=== PATIENT | female | born 1995 | race Hispanic/Latino ===

== ENCOUNTER 2019-06-08 11:21 | Emergency (ER) | payer SELFPAY ==
--- OUTSIDE RECORDS SUMMARY | 2019-06-08 11:23 | XMS REPORT ---
:1995 [facility] Address [address] [place] [address] Care Team Providers Name Role Phone DR SHANTI ZUELTA Unavailable Unavailable Problems This patient has no known problems. Allergies, Adverse Reactions, Alerts This patient has no known allergies or adverse reactions. Medications This patient has no known medications. Results Test Description Test Time Test Comments Text Results Atomic Results Result Comments URINE CULTURE 2016-11-14 07:16:00 Test Item Value Reference Range Comments Culture Observations (test code=COB1) NO GROWTH (<1,000 CFU/ML) HIV *WW*2016-11-11 09:23:00 Test Item Value Reference Range Comments HIV-1,2 and p24 (test code=CHIV) NON-REACTIVE NON-REACTIVE SYPHILIS SCREENING WW2016-11-11 09:13:00 Test Item Value Reference Range Comments T PALLIDUM AB (test NON-REACTIVE NON-REACTIVE code=SYPHINT) SYPHC (test code=SYPHC) RPR test has been updated to Treponemal Immunoassay. Interpretation of results is similar HEPATITIS B SURFACE ANTIGEN *WW*2016-11-11 08:52:00 Test Item Value Reference Range Comments HBSAG (test code=HBSAG) NON-REACTIVE NON-REACTIVE CBC (INCLUDES AUTOMATED DIFFERENTIAL)*[id number] 06:24:00 Test Item Value Reference Range Comments WBC (test code=WBC) 11.4 10\S\3/uL 4.5-11.0 RBC (test code=RBC) 3.63 10\S\6/uL 4.30-5.70 HGB (test code=HBG) 10.3 g/dL 12.0-15.5 HCT (test code=HCT) 32.3 % 35.0-44.0 MCV (test code=MCV) 89.0 fL 81.0-99.0 MCH (test code=MCH) 28.4 pg 27.0-31.0 MCHC (test code=MCHC) 31.9 g/dL 32.0-36.0 RDW (test code=RDW) 17.5 % 11.5-14.5 PLT (test code=PLT) 270 10\S\3/uL 130-400 MPV (test code=MPV) 10.1 fL 9.4-12.4 NEUTROP # (test code=NE#) 9.6 10\S\3/uL 1.6-8.0 LYMPH # (test code=LY#) 1.3 10\S\3/uL 1.1-3.5 MONOCYTE # (test code=MO#) 0.4 10\S\3/uL 0.0-1.1 EOSINOPH # (test code=EO#) 0.0 10\S\3/uL 0.0-0.7 BASOPHIL # (test code=BA#) 0.0 10\S\3/uL 0.0-0.3 IG # (test code=IG#) 0.09 10\S\3/uL 0.00-0.06 NRBC # (test code=NRBC#) 0.00 10\S\3/uL 0.00-0.01 NEUTROPH % (test code=NE%) 83.8 % 35.0-73.0 LYMPH % (test code=LY%) 11.4 % 20.0-55.0 MONO % (test code=MO%) 3.9 % 2.5-10.0 EOSINOPH % (test code=EO%) 0.0 % 0.0-5.0 BASOPHIL % (test code=BA%) 0.1 % 0.0-2.0 IG % (test code=IG%) 0.8 % 0.0-0.8 NRBC% (test code=NRBC%) 0.0 % 0.0-0.2 MANDIFF (test code=WMDIFF) NO NO RBC MORPH (test code=WRBCMOR) NORMAL URINALYSIS *WW*2016-11-11 04:46:00 Test Item Value Reference Range Comments COLOR (test code=COLU) YELLOW YELLOW CLARITY (test code=CLA) CLEAR CLEAR GLUCOSE UR (test code=UA GLUCOSE) NEGATIVE NEGATIVE BILI UR (test code=BILE) NEGATIVE NEGATIVE KETONES UR (test code=JERAMIE) 2+ NEGATIVE SP GRAVITY (test code=SPGR) 1.020 1.005-1.030 PH UR (test code=PH) 6.0 4.5-8.0 PROTEIN UR (test code=PU) NEGATIVE NEGATIVE UROBIL UR (test code=UROQ) 0.2 EU/dL 0.2-1.0 NITRITE UR (test code=NITRITE) NEGATIVE NEGATIVE BLOOD UR (test code=UA BLOOD) NEGATIVE NEGATIVE LEUK ES UR (test code=LEUK) NEGATIVE NEGATIVE AUAM (test code=WAUAM) NO NO U/S >14 WEEKS2016-11-11 02:47:43OB Ultrasound Complete HISTORY : PainCOMPARISON: NoneTECHNIQUE: Real-time sonography was performed transabdominally with the 4 MHztransducer.FINDINGS:There is a single living intrauterine fetus in vertex presentation.Placenta is right lateral, Grade 3. There is no evidence of placentalabruption nor placenta previa. Cervix is closed, measuring 3.7 cm length. Amniotic fluid volume is within normal limits with ANURAG of 9.0cm.ANATOMIC SURVEY: Limited anatomical survey is unremarkable. heart rate: 152 BPM Average sonographic age of the fetus is 36 weeks 3 days with NICK of 12/06/2016based on the following:Biparietal diameter : 9.10cmHead circumference: 33.4cmAbdominal circumference: 32.6cmFemur length: 7.00cmFetal ratios are normal. Estimated weight 2973 gFetal weight percentile: 65% based onpatient's ultrasound age of 36 weeks 3days.IMPRESSION: 1. Single living intrauterine fetus at 36 weeks 3 days sonographic age.2. No anomalies identified.3. No evidence for placenta previa nor abruption.U/S APPENDIX2016-11-11 02:42:56Right lower quadrant ultrasound history: PainComparison: NoneLocation [id number]: Grayscale imagesof the right lower quadrant are obtained.Findings:No enlarged appendix is identified. No fluid collection in the right lowerquadrant is identified. Normal peristalsing bowel is noted.Impression:No acute findings.U/S KIDNEY (RENAL)2016-11-11 02:40: 12RENAL ULTRASOUNDLocation R 16HISTORY: Renal failureCOMPARISON: None available.COMMENT: Real-time sonographic images of both kidneys reveals normal sizekidneys bilaterally with right kidney measuring 10.2 x 5.1 x 5.7 cm and theleft kidney measuring 10.9 x 5.8 x 5.9 cm. No evidence of hydronephrosis orrenal calculi identified.IMPRESSION: Normal bilateral renal ultrasound with no obstruction.
[2019-06-08 12:22] LABS: Urine Blood TRACE (NEG); Urine Glucose NEGATIVE (NEG); Urine Protein NEGATIVE (NEG); Urine Specific Gravity >1.030 (1.005-1.030); Urine pH 5.5 (5.0-7.0)
--- NOTE | 2019-06-08 12:37 | EDPHYS ---
Physician Documentation [facility] Name: Giovanna Bryant Age: 23 yrs Sex: Female : 1995 Arrival Date: 06/08/2019 Time: 11:24 Bed 18 Private MD: ED Physician Kenneth Eric HPI: 06/07 12:34 This 23 yrs old Female presents to ER via Ambulatory with complaints of ma2 Vaginal Pain. 12:34 The patient presents with a possible exposure to a sexually transmitted disease. Onset: ma2 The symptoms/episode began/occurred suddenly, 1 day(s) ago. Associated signs and symptoms: Pertinent negatives: dyspareunia, hematuria, vaginal bleeding. Severity of symptoms: At their worst the symptoms were moderate, in the emergency department the symptoms are unchanged. The patient has not experienced similar symptoms in the past. 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 - Social history:: Smoking status: Patient denies any tobacco usage or history of. Patient/guardian denies using alcohol, street drugs, The patient lives with family, with spouse. - Family history:: not pertinent. ROS: 12:34 Positive for urinary symptoms. ma2 12:34 Constitutional: Negative for fever, chills, and weight loss, Eyes: Negative for injury, pain, redness, and discharge, ENT: Negative for injury, pain, and discharge. 12:34 All other systems are negative. Exam: 12:34 Constitutional: This is a well developed, well nourished patient who is awake, alert, ma2 and in no acute distress. Chest/axilla: Normal chest wall appearance and motion. Nontender with no deformity. No lesions are appreciated. Cardiovascular: Regular rate and rhythm with a normal S1 and S2. No gallops, murmurs, or rubs. Normal PMI, no JVD. No pulse deficits. Respiratory: Lungs have equal breath sounds bilaterally, clear to auscultation and percussion. No rales, rhonchi or wheezes noted. No increased work of breathing, no retractions or nasal flaring. Abdomen/GI: Soft, non-tender, with normal bowel sounds. No distension or tympany. No guarding or rebound. No evidence of tenderness throughout. Back: No spinal tenderness. No costovertebral tenderness. Full range of motion. MS/ Extremity: Pulses equal, no cyanosis. Neurovascular intact. Full, normal range of motion. Neuro: Awake and alert, GCS 15, oriented to person, place, time, and situation. Cranial nerves II-XII grossly intact. Motor strength 5/5 in all extremities. Sensory grossly intact. Cerebellar exam normal. Normal gait. 12:34 : painful blisters in vaginal area. Vital Signs: 11:36 BP 118 / 79; Pulse 73; Resp 15 S; Temp 97(TE); Pulse Ox 100% on R/A; Weight 56.7 kg ca1 (R); Height 5 ft. (152.40 cm) (R); Pain 6/10; 11:36 Body Mass Index 24.41 (56.70 kg, 152.40 cm) ca1 MDM: 11:40 Patient medically screened. ma2 12:34 Differential diagnosis: urinary tract infection, vaginosis. Differential diagnosis: ma2 cervicitis, dysfunctional uterine bleeding. Data reviewed: vital signs, nurses notes. Counseling: I had a detailed discussion with the patient and/or guardian regarding: the historical points, exam findings, and any diagnostic results supporting the discharge/admit diagnosis, the presence of at least one elevated blood pressure reading (>120/80) during this emergency department visit, the need for outpatient follow up. Response to treatment: the patient's symptoms have markedly improved after treatment. 06/07 12:04 Order name: Urine Dipstick--Ancillary (enter results) bd 06/07 12:04 Order name: Urine --Ancillary (enter results) bd 06/07 11:40 Order name: Urine Dipstick-Ancillary (obtain specimen); Complete Time: 12:14 ma2 Administered Medications: No medications were administered Disposition: 06/08/19 12:36 Discharged to Home. 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 - Condition is Stable. - Discharge Instructions: Urinary Tract Infection, Adult. - Prescriptions for Benadryl Itch Cooling - apply 1 application by TOPICAL route 3-4 times daily for 8-10 days; 2 tube. lidocaine- aloe vera - Apply to affected area 1 application by TOPICAL route 3-4 times daily for 10 days; 2 tube. Cipro 500 mg Oral Tablet - take 1 tablet by ORAL route every 12 hours for 7 days; 14 tablet. Acyclovir 400 mg Oral Tablet - take 1 tablet by ORAL route every 6 hours for 5 days; 28 tablet. - Medication Reconciliation Form, Thank You Letter, Antibiotic Education, Prescription Opioid Use form. - Follow up: Private Physician; When: Tomorrow; Reason: Continuance of care. Signatures: Dispatcher [employer] EDMissy Richardson RN RN aa5 Kenneth Eric MD MD ma2 Bette Peñaloza RN RN ca1 Corrections: (The following items were deleted from the chart) 13:19 12:36 06/08/2019 12:36 Discharged to Home. Impression: Herpesviral [herpes simplex] aa5 infections; Cystitis, unspecified without hematuria. Condition is Stable. Forms are Medication Reconciliation Form, Thank You Letter, Antibiotic Education, Prescription Opioid Use. Follow up: Private Physician; When: Tomorrow; Reason: Continuance of care. ma2
--- NOTE | 2019-06-08 12:37 | ER ---
Nurse's Notes [facility] Name: Giovanna Bryant Age: 23 yrs Sex: Female : 1995 Arrival Date: 06/08/2019 Time: 11:24 Bed 18 Private MD: Diagnosis: Herpesviral [herpes simplex] infections;Cystitis, unspecified without hematuria Presentation: 06/07 11:36 Chief complaint: Patient states: "I got a lot of pain down there and sores for about ca1 3-4 days ago". Denies fever. Coronavirus screen: Patient denies fever greater than 100.4F, cough, shortness of breath, or difficulty breathing. Proceed with normal triage process. Ebola Screen: Patient negative for fever greater than or equal to 101.5 degrees Fahrenheit, and additional compatible Ebola Virus Disease symptoms Patient denies exposure to infectious person. Patient denies travel to an Ebola-affected area in the 21 days before illness onset. No symptoms or risks identified at this time. Initial Sepsis Screen: Does the patient meet any 2 criteria? No. Patient's initial sepsis screen is negative. Does the patient have a suspected source of infection? No. Patient's initial sepsis screen is negative. Risk Assessment: Do you want to hurt yourself or someone else? Patient reports no desire to harm self or others. Onset of symptoms was June 08, 2019. 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 - Social history:: Smoking status: Patient denies any tobacco usage or history of. Patient/guardian denies using alcohol, street drugs, The patient lives with family, with spouse. - Family history:: not pertinent. Screenin:40 Abuse screen: Denies threats or abuse. Nutritional screening: No deficits noted. aa5 Tuberculosis screening: No symptoms or risk factors identified. Fall Risk None identified. Assessment: 11:40 General: Appears comfortable, Behavior is calm, cooperative. Pain: Complains of pain in aa5 groin Pain does not radiate. Pain currently is 6 out of 10 on a pain scale. Quality of pain is described as burning, tender, stinging, Pain began 2-3 days ago. Is continuous. Neuro: Level of Consciousness is awake, alert, obeys commands, Oriented to person, place, time, situation. Cardiovascular: Patient's skin is warm and dry. Respiratory: Airway is patent Respiratory effort is even, unlabored, Respiratory pattern is regular, symmetrical. GI: No signs and/or symptoms were reported involving the gastrointestinal system. : Reports burning with urination, Denies vaginal discharge. EENT: No signs and/or symptoms were reported regarding the EENT system. Derm: Skin is pink, warm \\T\\ dry. Rash noted that is red, raised, on groin. Musculoskeletal: Range of motion: intact in all extremities. 12:20 Reassessment: Patient is alert, oriented x 3, equal unlabored respirations, skin aa5 warm/dry/pink. 13:05 Reassessment: Patient is alert, oriented x 3, equal unlabored respirations, skin aa5 warm/dry/pink. Vital Signs: 11:36 BP 118 / 79; Pulse 73; Resp 15 S; Temp 97(TE); Pulse Ox 100% on R/A; Weight 56.7 kg ca1 (R); Height 5 ft. (152.40 cm) (R); Pain 6/10; 11:36 Body Mass Index 24.41 (56.70 kg, 152.40 cm) ca1 ED Course: 11:24 Patient arrived in ED. mr 11:38 Triage completed. ca1 11:38 Arm band placed on right wrist. ca1 11:39 Kenneth Eric MD is Attending Physician. ma2 11:40 Patient has correct armband on for positive identification. Placed in gown. Bed in low aa5 position. Call light in reach. Side rails up X 1. 11:42 Missy Matthews, ABIOLA is Primary Nurse. aa5 11:58 Urine collected: clean catch specimen, clear. aa5 13:10 No provider procedures requiring assistance completed. Patient did not have IV access aa5 during this emergency room visit. Administered Medications: No medications were administered Outcome: 12:36 Discharge ordered by . ma2 13:05 Discharged to home ambulatory. aa5 13:05 Condition: stable 13:05 Discharge instructions given to patient, Instructed on discharge instructions, follow up and referral plans. medication usage, Demonstrated understanding of instructions, follow-up care, medications, Prescriptions given X 4. 13:10 Patient left the ED. aa5 Signatures: BeverlyOma gutierrez mr MatthewsMissy RN RN aa5 Kenenth Eric MD MD ma2 Bette Peñaloza RN RN ca1 Corrections: (The following items were deleted from the chart) 13:20 13:19 Patient left the ED. aa5 aa5
[2019-06-08 13:34] VITALS: BP 118/79; TEMP 97; O2SAT 100
== END 2019-06-08 13:19 | disposition home or self-care (01) ==
LOC: ER 11:21
DX: B00.9 Herpesviral infection, unspecified (principal); N30.90 Cystitis, unspecified without hematuria
CPT/HCPCS: 81003; 81025; 99283